=== PATIENT | female | born 1970 | race Caucasian/White ===

== ENCOUNTER 2022-10-31 20:37 | Inpatient (IN) | payer OTHER ==
[~2022-10-31] VITALS: Ht 160 cm; Wt 92.1 kg
[2022-10-31 22:30] LABS: CHLORIDE 114 mEq/L (98-107)
[2022-10-31 22:31] LABS: BASOPHILS % 0.8 % (0.0-2.0); EOSINOPHILS % 5.1 % (0.0-5.0); HEMATOCRIT. 29.1 % (36.0-48.0); HEMOGLOBIN. 9.4 g/dL (12.0-16.0); LYMPHOCYTES % 14.1 % (20.0-50.0); MEAN CORPUSCULAR VOLUME 83.5 fL (81.0-99.0); MEAN PLATELET VOLUME 9.8 fl (7.4-10.4); MONOCYTES % 6.4 % (2.0-8.0); NEUTROPHILS % 73.6 % (40.0-76.0); PLATELET 302 x1000/uL (130-400); RED BLOOD CELL COUNT 3.49 mill/uL (4.2-5.4); RED CELL DISTRIBUTION WIDTH 16.2 % (11.6-14.6)
[2022-10-31] MEDS ORDERED: FUROSEMIDE 40MG/4ML VIAL IVP ONE (23:00)
[2022-10-31] MEDS ORDERED: FUROSEMIDE 40MG/4ML VIAL IVP NR (23:15)
[2022-11-01 08:30] VITALS: BP_SYST 142; BP_SYST 147; BP_DIAS 71; PULSE 88; RESP 18; TEMP 88; TEMP 97.8
[2022-11-01] MEDS ORDERED: GLIP10TA10 MT (09:32)
[2022-11-01] MEDS ORDERED: LEVVL SQ (09:32)
[2022-11-01] MEDS ORDERED: pravachol (09:34)
[2022-11-01] MEDS ORDERED: GABA-532 MT (09:35)
[2022-11-01] MEDS ORDERED: ESCI10TA MT (09:36)
[2022-11-01] MEDS ORDERED: BUSP10TA4 PO (10:36)
[2022-11-01] MEDS ORDERED: ASPI-1497 MT (10:36)
[2022-11-01] MEDS ORDERED: RISP1 PO (10:36)
[2022-11-01] MEDS ORDERED: BENZ0.5T3 PO (10:36)
[2022-11-01] MEDS: FUROSEMIDE 40MG/4ML VIAL IVP SCH ×2 (11:06→16:35)
[2022-11-01 12:00] VITALS: BP 171/77; PULSE 82; RESP 18; TEMP 97.5
[2022-11-01] MEDS ORDERED: IPRATROPIUM/ALBUTEROL 0.5-3(2.5)MG/3ML NEB HHN PRN (12:30)
[2022-11-01] MEDS ORDERED: CLONIDINE 0.1MG TABLET PO PRN ×2 (13:15→16:30)
[2022-11-01 16:00] VITALS: BP 141/8; PULSE 71; RESP 18; TEMP 97.7
[2022-11-01] MEDS ORDERED: ACETAMINOPHEN 325MG TABLET PO PRN (16:30)
[2022-11-01] MEDS ORDERED: ONDANSETRON HCL 4MG/2ML INJ IV PRN (16:30)
[2022-11-01 16:57] LABS: CLARITY URINE CLEAR (CLEAR); COLOR URINE YELLOW (YELLOW); KETONES URINE NEGATIVE (NEGATIVE); LEUKOCYTE ESTERASE URINE NEGATIVE (NEGATIVE); NITRITE URINE NEGATIVE (NEGATIVE); OCCULT BLOOD URINE 1+ (NEGATIVE); PROTEIN URINE 3+ (NEGATIVE); UROBILINOGEN URINE 0.2 E.U./dL (0.2-1.0)
[2022-11-01] MEDS: GABAPENTIN 300MG CAPSULE PO SCH ×2 (17:26→22:09)
[2022-11-01] MEDS: CITALOPRAM HYDROBROMIDE 10MG TABLET PO SCH (17:26)
[2022-11-01] MEDS: GLIPIZIDE 10MG TABLET PO SCH (17:28)
[2022-11-01] MEDS: RISPERIDONE 1MG TABLET PO SCH (17:28)
[2022-11-01] MEDS: BUSPIRONE HCL 5MG TABLET PO SCH (17:28)
[2022-11-01] MEDS: ENOXAPARIN 40MG/0.4ML SYR SUBCUT SCH (17:29)
[2022-11-01] MEDS ORDERED: DEXTROSE 50% WATER 50ML SYRINGE IV PRN (18:30)
[2022-11-01 20:00] VITALS: BP 138/67; PULSE 66; RESP 17; TEMP 96.1
[2022-11-01] MEDS: BLOOD SUGAR DIAGNOSTIC STRIP TEST SCH (20:41)
[2022-11-01] MEDS: IPRATROPIUM/ALBUTEROL 0.5-3(2.5)MG/3ML NEB HHN SCH (21:02)
[2022-11-01 21:07] VITALS: PULSE 82; RESP 20; O2SAT 98
[2022-11-01] MEDS: ATORVASTATIN CALCIUM 40MG TABLET PO SCH (22:09)
[2022-11-01] MEDS: INSULIN LISPRO 100 UNITS/ML SUBCUT SCH (22:10)
[2022-11-02] VITALS (9 sets, daily range): BP systolic 128–138; BP diastolic 62–70; PULSE 70–82; RESP 16–20; TEMP 96.4–97.9; O2SAT 97–99
[2022-11-02 01:06] LABS: CREATINE KINASE MB FRACTION 5.1 ng/mL (0.5-3.6)
[2022-11-02] MEDS: IPRATROPIUM/ALBUTEROL 0.5-3(2.5)MG/3ML NEB HHN SCH ×2 (01:06→21:11)
[2022-11-02 07:25] LABS: CREATINE KINASE MB FRACTION 4.1 ng/mL (0.5-3.6)
[2022-11-02] MEDS: BLOOD SUGAR DIAGNOSTIC STRIP TEST SCH ×4 (07:40→20:20)
[2022-11-02] MEDS: INSULIN LISPRO 100 UNITS/ML SUBCUT SCH ×4 (08:10→20:28)
[2022-11-02] MEDS: CITALOPRAM HYDROBROMIDE 10MG TABLET PO SCH (09:00)
[2022-11-02] MEDS: FUROSEMIDE 40MG/4ML VIAL IVP SCH ×2 (09:00→17:09)
[2022-11-02] MEDS: METOLAZONE 2.5MG TABLET PO SCH (09:01)
[2022-11-02] MEDS: GLIPIZIDE 10MG TABLET PO SCH ×2 (09:01→17:10)
[2022-11-02] MEDS: GABAPENTIN 300MG CAPSULE PO SCH ×4 (09:01→20:28)
[2022-11-02] MEDS: ASPIRIN 81MG EC TABLET PO SCH (09:01)
[2022-11-02] MEDS: RISPERIDONE 1MG TABLET PO SCH ×2 (09:01→17:10)
[2022-11-02] MEDS: BENZTROPINE MESYLATE 0.5MG TABLET PO SCH (09:01)
[2022-11-02] MEDS: BUSPIRONE HCL 5MG TABLET PO SCH ×2 (09:05→17:10)
[2022-11-02] MEDS: INSULIN GLARGINE 100 UNITS/ML SUBCUT SCH (09:21)
[2022-11-02 10:08] LABS: *AMPHETAMINES SCREEN URINE NEGATIVE (NEGATIVE); *BARBITURATES SCREEN URINE NEGATIVE (NEGATIVE); *BENZODIAZEPINES SCREEN URINE NEGATIVE (NEGATIVE); *COCAINE SCREEN URINE NEGATIVE (NEGATIVE); CANNABINOID URINE SCREEN NEGATIVE (NEGATIVE); METHADONE URINE SCREEN NEGATIVE (NEGATIVE); OPIATES URINE SCREEN NEGATIVE (NEGATIVE); PHENCYCLIDINE URINE SCREEN NEGATIVE (NEGATIVE)
[2022-11-02 11:17] LABS: BASOPHILS % 0.7 % (0.0-2.0); EOSINOPHILS % 6.1 % (0.0-5.0); HEMATOCRIT. 29.4 % (36.0-48.0); HEMOGLOBIN. 9.5 g/dL (12.0-16.0); LYMPHOCYTES % 11.1 % (20.0-50.0); MEAN CORPUSCULAR VOLUME 83.3 fL (81.0-99.0); MEAN PLATELET VOLUME 8.7 fl (7.4-10.4); MONOCYTES % 7.4 % (2.0-8.0); NEUTROPHILS % 74.7 % (40.0-76.0); PLATELET 262 x1000/uL (130-400); RED BLOOD CELL COUNT 3.54 mill/uL (4.2-5.4); RED CELL DISTRIBUTION WIDTH 15.7 % (11.6-14.6)
[2022-11-02] MEDS: ENOXAPARIN 40MG/0.4ML SYR SUBCUT SCH (17:11)
[2022-11-02 18:41] LABS: HEPATITIS B SURFACE ANTIGEN NEGATIVE
[2022-11-02] MEDS: ATORVASTATIN CALCIUM 40MG TABLET PO SCH (20:28)
[2022-11-03] VITALS (11 sets, daily range): BP systolic 111–166; BP diastolic 48–88; PULSE 76–89; RESP 16–20; TEMP 96.4–98.8; O2SAT 93–98
[2022-11-03] MEDS: IPRATROPIUM/ALBUTEROL 0.5-3(2.5)MG/3ML NEB HHN SCH ×4 (01:38→19:34)
[2022-11-03 06:27] LABS: BASOPHILS % 0.5 % (0.0-2.0); EOSINOPHILS % 8.2 % (0.0-5.0); HEMATOCRIT. 26.9 % (36.0-48.0); HEMOGLOBIN. 8.8 g/dL (12.0-16.0); LYMPHOCYTES % 25.8 % (20.0-50.0); MEAN CORPUSCULAR HEMOGLOBIN 27.3 pg (28.0-32.0); MEAN CORPUSCULAR VOLUME 82.9 fL (81.0-99.0); MEAN PLATELET VOLUME 8.9 fl (7.4-10.4); MONOCYTES % 8.9 % (2.0-8.0); NEUTROPHILS % 56.6 % (40.0-76.0); PLATELET 238 x1000/uL (130-400); RED BLOOD CELL COUNT 3.24 mill/uL (4.2-5.4); RED CELL DISTRIBUTION WIDTH 15.3 % (11.6-14.6)
[2022-11-03] MEDS: INSULIN LISPRO 100 UNITS/ML SUBCUT SCH ×4 (08:10→20:39)
[2022-11-03] MEDS: BLOOD SUGAR DIAGNOSTIC STRIP TEST SCH ×4 (08:14→21:00)
[2022-11-03] MEDS: GABAPENTIN 300MG CAPSULE PO SCH ×4 (09:14→20:38)
[2022-11-03] MEDS: BENZTROPINE MESYLATE 0.5MG TABLET PO SCH (09:14)
[2022-11-03] MEDS: RISPERIDONE 1MG TABLET PO SCH ×2 (09:14→17:05)
[2022-11-03] MEDS: GLIPIZIDE 10MG TABLET PO SCH ×2 (09:14→17:05)
[2022-11-03] MEDS: FUROSEMIDE 40MG/4ML VIAL IVP SCH ×2 (09:14→17:06)
[2022-11-03] MEDS: BUSPIRONE HCL 5MG TABLET PO SCH ×2 (09:15→17:05)
[2022-11-03] MEDS: CITALOPRAM HYDROBROMIDE 10MG TABLET PO SCH (09:15)
[2022-11-03] MEDS: METOLAZONE 2.5MG TABLET PO SCH (09:15)
[2022-11-03] MEDS: ASPIRIN 81MG EC TABLET PO SCH (09:15)
[2022-11-03] MEDS: INSULIN GLARGINE 100 UNITS/ML SUBCUT SCH (10:00)
[2022-11-03] MEDS: ENOXAPARIN 40MG/0.4ML SYR SUBCUT SCH (17:07)
[2022-11-03] MEDS: ATORVASTATIN CALCIUM 40MG TABLET PO SCH (20:38)
[2022-11-04] VITALS (8 sets, daily range): BP systolic 131–141; BP diastolic 64–86; PULSE 61–92; RESP 17–24; TEMP 97.3–98.6; O2SAT 92–96
[2022-11-04] MEDS: IPRATROPIUM/ALBUTEROL 0.5-3(2.5)MG/3ML NEB HHN SCH ×4 (01:43→21:09)
[2022-11-04] MEDS: BLOOD SUGAR DIAGNOSTIC STRIP TEST SCH ×4 (07:41→21:55)
[2022-11-04] MEDS: INSULIN LISPRO 100 UNITS/ML SUBCUT SCH ×4 (07:42→21:07)
[2022-11-04] MEDS: FUROSEMIDE 40MG/4ML VIAL IVP SCH ×2 (08:56→17:44)
[2022-11-04] MEDS: BENZTROPINE MESYLATE 0.5MG TABLET PO SCH (08:57)
[2022-11-04] MEDS: CITALOPRAM HYDROBROMIDE 10MG TABLET PO SCH (08:57)
[2022-11-04] MEDS: GLIPIZIDE 10MG TABLET PO SCH ×2 (08:57→17:44)
[2022-11-04] MEDS: ASPIRIN 81MG EC TABLET PO SCH (08:57)
[2022-11-04] MEDS: GABAPENTIN 300MG CAPSULE PO SCH ×4 (08:57→21:05)
[2022-11-04] MEDS: BUSPIRONE HCL 5MG TABLET PO SCH ×2 (08:57→17:44)
[2022-11-04] MEDS: RISPERIDONE 1MG TABLET PO SCH ×2 (08:57→17:44)
[2022-11-04] MEDS: METOLAZONE 2.5MG TABLET PO SCH (08:58)
[2022-11-04] MEDS: INSULIN GLARGINE 100 UNITS/ML SUBCUT SCH (09:35)
[2022-11-04] MEDS: ATORVASTATIN CALCIUM 40MG TABLET PO SCH (21:05)
[2022-11-05] VITALS (10 sets, daily range): BP systolic 110–137; BP diastolic 61–68; PULSE 72–90; RESP 18–20; TEMP 97.2–98.6
[2022-11-05] MEDS: IPRATROPIUM/ALBUTEROL 0.5-3(2.5)MG/3ML NEB HHN SCH ×4 (02:15→21:46)
[2022-11-05] MEDS ORDERED: ENOXAPARIN 30MG/0.3ML SYR SUBCUT SCH (06:00)
[2022-11-05] MEDS: BLOOD SUGAR DIAGNOSTIC STRIP TEST SCH ×4 (07:07→20:18)
[2022-11-05] MEDS: INSULIN LISPRO 100 UNITS/ML SUBCUT SCH ×4 (07:55→20:57)
[2022-11-05] MEDS: METOLAZONE 2.5MG TABLET PO SCH (09:00)
[2022-11-05] MEDS: FUROSEMIDE 40MG/4ML VIAL IVP SCH (09:00)
[2022-11-05] MEDS: GLIPIZIDE 10MG TABLET PO SCH ×2 (09:00→17:33)
[2022-11-05] MEDS: RISPERIDONE 1MG TABLET PO SCH ×2 (09:01→17:29)
[2022-11-05] MEDS: BUSPIRONE HCL 5MG TABLET PO SCH ×2 (09:01→17:29)
[2022-11-05] MEDS: GABAPENTIN 300MG CAPSULE PO SCH ×4 (09:01→20:18)
[2022-11-05] MEDS: CITALOPRAM HYDROBROMIDE 10MG TABLET PO SCH (09:05)
[2022-11-05] MEDS: BENZTROPINE MESYLATE 0.5MG TABLET PO SCH (09:05)
[2022-11-05 09:40] LABS: BASOPHILS % 0.7 % (0.0-2.0); HEMATOCRIT. 32.1 % (36.0-48.0); HEMOGLOBIN. 10.3 g/dL (12.0-16.0); LYMPHOCYTES % 15.2 % (20.0-50.0); MEAN CORPUSCULAR HEMOGLOBIN 26.5 pg (28.0-32.0); MEAN CORPUSCULAR VOLUME 82.8 fL (81.0-99.0); MEAN PLATELET VOLUME 8.9 fl (7.4-10.4); MONOCYTES % 6.1 % (2.0-8.0); PLATELET 300 x1000/uL (130-400); RED BLOOD CELL COUNT 3.87 mill/uL (4.2-5.4); RED CELL DISTRIBUTION WIDTH 15.3 % (11.6-14.6)
[2022-11-05] MEDS: INSULIN GLARGINE 100 UNITS/ML SUBCUT SCH (10:16)
[2022-11-05] MEDS: ATORVASTATIN CALCIUM 40MG TABLET PO SCH (20:18)
[2022-11-06] VITALS (8 sets, daily range): BP systolic 117–140; BP diastolic 57–71; PULSE 78–92; RESP 18–20; TEMP 97.2–98.5; O2SAT 92
[2022-11-06] MEDS: IPRATROPIUM/ALBUTEROL 0.5-3(2.5)MG/3ML NEB HHN SCH ×3 (01:18→13:09)
[2022-11-06 05:57] LABS: CHLORIDE 106 mEq/L (98-107)
[2022-11-06 06:31] LABS: BASOPHILS % 0.4 % (0.0-2.0); EOSINOPHILS % 9.6 % (0.0-5.0); HEMATOCRIT. 30.1 % (36.0-48.0); HEMOGLOBIN. 9.9 g/dL (12.0-16.0); LYMPHOCYTES % 20.5 % (20.0-50.0); MEAN CORPUSCULAR VOLUME 82.2 fL (81.0-99.0); MEAN PLATELET VOLUME 8.8 fl (7.4-10.4); NEUTROPHILS % 61.5 % (40.0-76.0); PLATELET 285 x1000/uL (130-400); RED BLOOD CELL COUNT 3.66 mill/uL (4.2-5.4); RED CELL DISTRIBUTION WIDTH 15.3 % (11.6-14.6)
[2022-11-06] MEDS: BLOOD SUGAR DIAGNOSTIC STRIP TEST SCH ×2 (06:40→12:31)
[2022-11-06] MEDS: INSULIN LISPRO 100 UNITS/ML SUBCUT SCH ×2 (08:05→12:33)
[2022-11-06] MEDS: BUSPIRONE HCL 5MG TABLET PO SCH (08:52)
[2022-11-06] MEDS: BENZTROPINE MESYLATE 0.5MG TABLET PO SCH (08:52)
[2022-11-06] MEDS: GLIPIZIDE 10MG TABLET PO SCH (08:52)
[2022-11-06] MEDS: CITALOPRAM HYDROBROMIDE 10MG TABLET PO SCH (08:52)
[2022-11-06] MEDS: GABAPENTIN 300MG CAPSULE PO SCH ×2 (08:53→12:32)
[2022-11-06] MEDS: METOLAZONE 2.5MG TABLET PO SCH (08:53)
[2022-11-06] MEDS: RISPERIDONE 1MG TABLET PO SCH (08:53)
[2022-11-06] MEDS: FUROSEMIDE 40MG/4ML VIAL IVP SCH (09:25)
[2022-11-06] MEDS: INSULIN GLARGINE 100 UNITS/ML SUBCUT SCH (10:00)
[2022-11-06] MEDS ORDERED: FURO-151 MT (10:43)
[2022-11-06] MEDS ORDERED: METO2.5T2 PO (10:43)
[2022-11-07] MEDS ORDERED: LOSARTAN POTASSIUM 25 MG TABLET PO SCH (09:00)
== END 2022-11-06 13:00 | disposition home or self-care (01) | DRG 194 ==
LOC: ER 20:37 → 7WST 11-01 00:36 → EDBEDREQTM 11-01 00:41 → EDBEDREQ 11-01 00:41 → EDBEDREQDT 11-01 00:41 → ENRESERV 11-01 07:13
PROVIDERS: ADMIT Internal Medicine; ATTEND Internal Medicine
DX: I13.0 Hypertensive heart and chronic kidney disease with heart failure and stage 1 through stage 4 chronic kidney disease, or unspecified chronic kidney disease (principal); J96.00 Acute respiratory failure, unspecified whether with hypoxia or hypercapnia; I21.4 Non-ST elevation (NSTEMI) myocardial infarction; N17.9 Acute kidney failure, unspecified; Z20.822 Contact with and (suspected) exposure to COVID-19; I50.9 Heart failure, unspecified; F20.9 Schizophrenia, unspecified; N18.9 Chronic kidney disease, unspecified; E78.00 Pure hypercholesterolemia, unspecified; E11.22 Type 2 diabetes mellitus with diabetic chronic kidney disease; I27.20 Pulmonary hypertension, unspecified; F41.9 Anxiety disorder, unspecified; I08.1 Rheumatic disorders of both mitral and tricuspid valves; Z79.4 Long term (current) use of insulin
CPT/HCPCS: 36415; 71045; 76770; 80048; 80053; 80061; 80305; 81003; 82550; 82553; 82570; 82962; 83036; 83735; 83880; 84156; 84484; 85025; 86803; 87340; 87426; 87804; 93005; 93306; 93970; 94640; 99291; C1893; C9803; J1650; J1815; J1940